=== PATIENT | male | born 1950 | race Caucasian/White ===

== ENCOUNTER 2018-03-14 13:49 | Inpatient (IN) | payer MEDICARE ==
[~2018-03-14] VITALS: Ht 182.9 cm; Wt 56.7 kg
--- NOTE | 2018-03-14 13:52 | NUR ---
PT BIBRA FROM HOME TO ER BED 07 C/O GENRALIZED WEAKNESS, BILAT UPPER AND LOWER EXTREMITY SWELLING. PT DENIES CHEST PAIN. ALSO C/O DIARRHEA. ALL SYMPTOMS STARTED 2 WEEKS AGO. GOWNED AND PLACED ON MONITOR. AWAITING MD ANTONY.
--- NOTE | 2018-03-14 14:38 | NUR ---
DR GUTIERREZ AT BEDSIDE FOR EVAL.
[2018-03-14] MEDS ORDERED: IV NS 0.9% 500 ML BAG IV ONE (15:00)
--- NOTE | 2018-03-14 15:00 | NUR ---
IV LINE STARTED BLOOD DRAWN AND SENT TO LAB.
[2018-03-14 15:16] LABS: BASOPHILS % (AUTO) 0.2 % (0.0-2.0); EOSINOPHILS % (AUTO) 0.1 % (0.0-6.0); HEMATOCRIT 29 % (39-51); LYMPHOCYTES # (AUTO) 0.7 /CMM (0.8-4.8); LYMPHOCYTES % (AUTO) 7.7 % (20.0-44.0); MEAN CORPUSCULAR HEMOGLOBIN 31 PG (26.0-33.0); MEAN CORPUSCULAR HGB CONC 35 g/dl (31.0-36.0); MEAN CORPUSCULAR VOLUME 90 fL (80-96); MONOCYTES # (AUTO) 0.8 /CMM (0.1-1.30); MONOCYTES % (AUTO) 8.7 % (2.0-12.0); NEUTROPHILS # (AUTO) 7.7 /CMM (1.8-8.9); NEUTROPHILS % (AUTO) 83.3 % (43.0-81.0); PLATELET COUNT (AUTO) 639 /CMM (150-450); RDW COEFFICIENT OF VARIATION 14.2 (11.5-15.0); RED BLOOD CELL COUNT(AUTO) 3.22 MIL/uL (4.5-6.0); WHITE BLOOD COUNT (AUTO) 9.2 K/uL (4.3-11.0)
[2018-03-14 15:22] LABS: CALCIUM, SERUM 7.6 mg/dL (8.5-10.1); CARBON DIOXIDE 28 mmol/L (21-32); CHLORIDE 99 mmol/L (98-107); CREATININE 0.5 mg/dL (0.6-1.3); GLUCOSE 116 mg/dL (74-106); INR 1.34 (0.85-1.15); POTASSIUM 3.5 mmol/L (3.5-5.1); SODIUM SERUM 133 mmol/L (136-145); UREA NITROGEN, BLOOD 21 mg/dL (7-18)
[2018-03-14 15:33] LABS: ALANINE AMINOTRANSFERASE 22 U/L (12-78); ALBUMIN 1.5 g/dL (3.4-5.0); ALKALINE PHOSPHATASE 117 U/L (46-116); ASPARTATE AMINOTRANSFERASE 36 U/L (15-37); B-TYPE NATRIURETIC PEPTIDE 299 PG/ML (0-125); BILIRUBIN,DIRECT 0.1 mg/dL (0.0-0.2); BILIRUBIN,TOTAL 0.5 mg/dL (0.2-1.0); TROPONIN I < 0.017 ng/mL (0.00-0.056)
--- NOTE | 2018-03-14 16:09 | NUR ---
CALLED [employer] GREEN HIDE INSPECTOR WAS PAGED.
--- NOTE | 2018-03-14 16:54 | NUR ---
REPORT GIVEN TO ANA PAULA CALZADA. PT AWAITING MD ANTONY.
[2018-03-14] MEDS ORDERED: Z GUARD REMEDY 2 OZ OINT TP PRN (17:00)
[2018-03-14] MEDS ORDERED: MAG HYDROX/AL HYDROX/SIMETH 30 ML UDC PO PRN (17:00)
[2018-03-14] MEDS ORDERED: ZOLPIDEM TARTRATE 5 MG TABLET PO PRN (17:00)
[2018-03-14] MEDS ORDERED: HYDROCODONE/APAP 5/325MG 1 EACH TABLET PO PRN (17:00)
[2018-03-14] MEDS ORDERED: MAGNESIUM HYDROXIDE 30 ML UDC PO PRN (17:00)
[2018-03-14] MEDS ORDERED: ONDANSETRON HCL/PF 4 MG/2 ML VIAL IVP PRN (17:00)
[2018-03-14] MEDS ORDERED: ACETAMINOPHEN 325 MG TABLET PO PRN (17:00)
--- NOTE | 2018-03-14 17:07 | NUR ---
REPORT GIVEN TO CHARO CALZADA. PT AWAITING TRANSFER TO FLOOR.
[2018-03-14] MEDS ORDERED: ENOXAPARIN SODIUM 80 MG/0.8 ML DISP.SYRIN SQ ONE ×2 (17:18→17:30)
[2018-03-14 17:20] VITALS: BP 99/60
--- NOTE | 2018-03-14 17:20 | NUR ---
RN NOTES RECEIVED PT IN ROOM 113-2, TELE STATUS , A/Ox4, ON RA , RESPIRATION EVEN AND UNLABORED, NO SOB NOTED, PT HAS DIARRHEA DUE TO HX OF COLITIS , ON TELE HR IN 70'S SR , NS AT 75CC/HR STATED ON L HAND IV SITE G 18 , SITE CLEAN, DRY AND INTACT, WOUND CONSULT ORDERED , SR UP x3, CALL LIGHT WITHIN EASY REACH, BED LOCKED AND IN LOWEST POSITION , CONTINUE TO MONITOR.
[2018-03-14] MEDS: IV NS 0.9% 1,000 ML IV PRN (17:49)
[2018-03-14] MEDS: METRONIDAZOLE 500MG/ NS 100ML 500 MG in PREMIX 1 EA IV SCH (18:34)
--- NOTE | 2018-03-14 18:56 | NUR ---
RN NOTES PT STABLE , WILL ENDOSE TO STATION BAGGAGE AGENT NURSE FOR CONTINUITY OF CARE .
--- NOTE | 2018-03-14 19:30 | NUR ---
SOFTWARE APPLICATIONS SPECIALIST NOTES, RECEIVED PT IN BED ALERT AND ORIENTED X4, ABLE TO VERBALIZED NEEDS AND CONCERNS, ON RA WITH OPTIMAL SATURATION LEVEL, BREATHING EVEN AND NO BM NOTED AT THIS TIME, ON TELE MONITOR HR IN 70'S SR , IV SITE L HAND G 18, PATENT AND INTACT, NS AT 75CC/HR, DRY AND CLEAN AT THIS TIME AND WELL REPOSITIONED, CALL LIGHT WITHIN EASY REACH, BED LOCKED AND IN LOWEST POSITION , CONTINUE TO MONITOR. TELE
[2018-03-14] MEDS: CIPROFLOXACIN IV RTU 400 MG in PREMIX 1 EA IV SCH (19:48)
[2018-03-14 20:00] VITALS: BP 94/54
[2018-03-14] MEDS: ENOXAPARIN SODIUM 60 MG/0.6 ML DISP.SYRIN SQ SCH (21:29)
[2018-03-15] VITALS (7 sets, daily range): BP systolic 89–104; BP diastolic 52–63
[2018-03-15] MEDS: METRONIDAZOLE 500MG/ NS 100ML 500 MG in PREMIX 1 EA IV SCH ×5 (00:01→23:41)
--- NOTE | 2018-03-15 06:28 | NUR ---
ASSISTANT GUEST SERVICES MANAGER CLOSING NOTES, PATIENT IN BED ALERT AND ORIENTED X4, ABLE TO VERBALIZED NEEDS AND CONCERNS, ON RA WITH OPTIMAL SATURATION LEVEL, BREATHING EVEN AND, NO BM DURING THE NIGHT, ON TELE MONITOR HR IN 70'S SR , IV SITE L HAND G 18, PATENT AND INTACT, 0.9% NS AT 75ML/HR, DRY AND CLEAN AT THIS TIME AND WELL REPOSITIONED, CALL LIGHT WITHIN EASY REACH, BED LOCKED AND IN LOWEST POSITION, NO C/O PAIN OR DISCOMFORT AT THIS TIME, NO SIGNIFICANT CHANGE IN CONDITION DURING THE NIGHT, WILL ENDORSE CONTINUITY OF CARE TO ONCOMING NURSE.
[2018-03-15 06:31] LABS: BASOPHILS % (AUTO) 0.2 % (0.0-2.0); EOSINOPHILS % (AUTO) 0.4 % (0.0-6.0); HEMATOCRIT 27 % (39-51); HEMOGLOBIN 8.8 g/dL (13.5-17.5); LYMPHOCYTES # (AUTO) 0.9 /CMM (0.8-4.8); LYMPHOCYTES % (AUTO) 9.7 % (20.0-44.0); MEAN CORPUSCULAR HEMOGLOBIN 30 PG (26.0-33.0); MEAN CORPUSCULAR HGB CONC 33 g/dl (31.0-36.0); MEAN CORPUSCULAR VOLUME 91 fL (80-96); MONOCYTES # (AUTO) 0.5 /CMM (0.1-1.30); MONOCYTES % (AUTO) 5.7 % (2.0-12.0); NEUTROPHILS # (AUTO) 7.7 /CMM (1.8-8.9); PLATELET COUNT (AUTO) 515 /CMM (150-450); RED BLOOD CELL COUNT(AUTO) 2.96 MIL/uL (4.5-6.0); WHITE BLOOD COUNT (AUTO) 9.2 K/uL (4.3-11.0)
[2018-03-15 06:44] LABS: CREATININE 0.5 mg/dL (0.6-1.3); MAGNESIUM 1.7 mg/dL (1.8-2.4); PHOSPHORUS 2.1 mg/dL (2.5-4.9)
[2018-03-15] MEDS: CIPROFLOXACIN IV RTU 400 MG in PREMIX 1 EA IV SCH ×2 (06:44→18:51)
--- NOTE | 2018-03-15 07:00 | NUR ---
RN NOTES RECEIVED PT ON BED, A/Ox4, ON RA, RESPIRATION EVEN AND UNLABORED, NO SOB NOTED, ON TELE SR HR IN 70'S , NS RUNNING AT 75CC/HR VIA L HAND IV G 18 , SITE CLEAN , DRY AND INTACT, SR UP x3, CALL LIGHT WITHIN EASY REACH , BED LOCKED AND IN LOWEST POSITION ,CONTINUE TO MONITOR .
[2018-03-15] MEDS: ENOXAPARIN SODIUM 60 MG/0.6 ML DISP.SYRIN SQ SCH ×2 (09:00→21:03)
[2018-03-15] MEDS: Magnesium 1GM/D5W 100ML PREMIX 100 ML IV SCH ×3 (09:00→11:26)
[2018-03-15] MEDS ORDERED: POTASSIUM CHLORIDE 20 MEQ TAB.PRT.SR PO ONE (09:00)
[2018-03-15 09:36] LABS: IRON, SERUM 18 ug/dl (50-175); TOTAL IRON BINDING CAPACITY 76 ug/dl (250-450)
[2018-03-15] MEDS ORDERED: Sodium Phosphate 15 MMOL in IV D5W 250 ML IV ONE ×2 (10:30→12:30)
--- NOTE | 2018-03-15 11:54 | NUR ---
WOUND CARE CONSULT: PATIENT SEEN AND SKIN INTEGRITY ASSESSMENT DONE. PLEASE SEE PCS FOR TODAY. TREATMENT RECOMMENDATION DISCUSSED WITH MD AND IN AGREEMENT. PATIENT WITH SURESH OF 14, PRESSURE ULCER PREVENTION MEASURES IN PLACE PER PLAN OF CARE. WILL SEE PRN. Addendum: 03/15/18 at 1157 by RAMON CRAWFORD RN Amended: Links added.
[2018-03-15] MEDS ORDERED: SILVER SULFADIAZINE CREAM 25 GM TUBE TP PRN (12:00)
[2018-03-15] MEDS: IV NS 0.9% 1,000 ML IV PRN (13:02)
--- NOTE | 2018-03-15 15:00 | NUR ---
RN NOTES UNABLE TO OBTAIN SILVADENE FROM PHARMACY . PHARMACY NOTIFEDx2
[2018-03-15] MEDS: PROSOURCE / PROSTAT (PYXIS) 30 ML UDC PO SCH (15:43)
[2018-03-15] MEDS: LACTOBACILLUS RHAMNOSUS GG 1 EACH CAP.SPRINK PO SCH ×2 (16:37→16:59)
[2018-03-15] MEDS: MULTIVITAMINS,THERAGRAN 1 UDTAB TABLET PO SCH ×2 (16:38→17:00)
--- NOTE | 2018-03-15 16:53 | NUR ---
RN NOTES ONE LARGE BLOODY LOOSE STOOL NOTED, DR MORILLO NOTIFIED, NO NEW ORDER RECEIVED, VSS STABLE , CONTINUE TO MONITOR
[2018-03-15] MEDS ORDERED: ACIDOPHILUS/BULGARICUS 1 EACH TAB.CHEW PO SCH (17:00)
[2018-03-15] MEDS: SILVER SULFADIAZINE CREAM 25 GM TUBE TP SCH (17:52)
--- NOTE | 2018-03-15 18:33 | NUR ---
RN NOTES PT STABLE , NS AT 75CC/HR RUNNING VIA R UPPER ARM IV SITE G 22, SR UP x3, CALL LIGHT WITHIN EASY REACH, WILL ENDORSE TO APPLICATIONS CONSULTANT NURSE FOR CONTINUITY OF CARE.
--- NOTE | 2018-03-15 20:03 | NUR ---
Spoke with patient, he is alert and oriented, stated he lives locally alone on the 2nd floor apartment that has no elevator access. He was ambulatory and independent with adl's until a week ago. He complaint of worsening weakness and difficulty ambulating due to swelling to both legs. He fell at home and has skin abrasions .Has limited support system , his nearest relative is cousin Cordell Self of [place] who patient cannot remember the phone contact. Patient stated that he was totally independent a week ago, was driving and does his groceries and errands. He never use DME and no homehealth reported. Discussed dc planning options, offered short term ARU vs SNF but patient refused. Patient prefer to return home, he will need assistance with transportation arrangement to go home. Addendum: 03/15/18 at 2002 by MULU RYAN RN Amended: Links added.
--- NOTE | 2018-03-15 20:11 | NUR ---
RN OPENING NOTES RECEIVED REPORT FROM CATIE CALZADA. PATIENT A/A/O X3, ABLE TO MAKE SOME NEEDS KNOWN & STATE PAIN. BREATHING EVEN & UNLABORED, TOLERATING ROOM AIR. SKIN WARM, DRY & INTACT W/ PULSES PRESENT & BOUNDING. DENIES ANY RESPIRATORY OR CARDIAC DISTRESS. RIGHT UPPER ARM IV #22 INTACT & PATENT W/ DRESSING CDI & IVF NS INFUSING WELL @ 75 ML/HR. DENIES ANY PAIN OR DISCOMFORT @ THIS TIME. SAFETY MEASURES IN PLACE W/ BED ALARM ON & CALL LIGHT WITHIN REACH. INSTRUCTED TO CALL FOR ANY ASSISTANCE. WILL CONTINUE TO MONITOR.
[2018-03-15] MEDS ORDERED: ENSURE ENLIVE 237 ML LIQUID (VANILLA) PO ONE (21:30)
[2018-03-16 02:00] VITALS: BP 96/65
[2018-03-16 04:00] VITALS: BP 96/65
[2018-03-16] MEDS: CIPROFLOXACIN IV RTU 400 MG in PREMIX 1 EA IV SCH ×2 (06:05→17:32)
[2018-03-16] MEDS: METRONIDAZOLE 500MG/ NS 100ML 500 MG in PREMIX 1 EA IV SCH ×3 (06:05→17:32)
[2018-03-16] MEDS: IV NS 0.9% 1,000 ML IV PRN (06:05)
[2018-03-16 06:29] LABS: APPEARANCE,URINE SL CLOUDY (CLEAR); BILIRUBIN,URINE NEGATIVE (NEGATIVE); BLOOD, URINE NEGATIVE Ery/uL (NEGATIVE); COLOR,URINE YELLOW (YELLOW); KETONES,URINE NEGATIVE (NEGATIVE); LEUKOCYTE ESTERASE ,URINE NEGATIVE (NEGATIVE); NITRITE, URINE POSITIVE (NEGATIVE); PROTEIN,URINE TRACE mg/dl (NEGATIVE); UGLUCOSE NEGATIVE (NEGATIVE)
[2018-03-16 06:58] LABS: BASOPHILS % (AUTO) 0.2 % (0.0-2.0); EOSINOPHILS % (AUTO) 0.9 % (0.0-6.0); HEMATOCRIT 26 % (39-51); HEMOGLOBIN 8.6 g/dL (13.5-17.5); LYMPHOCYTES # (AUTO) 0.8 /CMM (0.8-4.8); MEAN CORPUSCULAR HEMOGLOBIN 30 PG (26.0-33.0); MEAN CORPUSCULAR HGB CONC 33 g/dl (31.0-36.0); MEAN CORPUSCULAR VOLUME 92 fL (80-96); MONOCYTES # (AUTO) 0.3 /CMM (0.1-1.30); MONOCYTES % (AUTO) 5.1 % (2.0-12.0); NEUTROPHILS # (AUTO) 4.6 /CMM (1.8-8.9); NEUTROPHILS % (AUTO) 79.8 % (43.0-81.0); PLATELET COUNT (AUTO) 503 /CMM (150-450); RDW COEFFICIENT OF VARIATION 15.3 (11.5-15.0); RED BLOOD CELL COUNT(AUTO) 2.86 MIL/uL (4.5-6.0); WHITE BLOOD COUNT (AUTO) 5.8 K/uL (4.3-11.0)
[2018-03-16 07:09] LABS: BACTERIA,URINE Few /HPF (None Seen); RBC,URINE 0-2 /HPF (0-2); SQUAMOUS EPITHELIAL CELL,UR Few /HPF (None Seen); WBC,URINE NONE SEEN /HPF (0-3)
[2018-03-16 07:10] LABS: MUCUS,URINE Few /LPF (None Seen)
[2018-03-16 07:44] LABS: BILIRUBIN,TOTAL 0.4 mg/dL (0.2-1.0); CALCIUM, SERUM 6.7 mg/dL (8.5-10.1); CREATININE 0.3 mg/dL (0.6-1.3); PHOSPHORUS 1.8 mg/dL (2.5-4.9); POTASSIUM 3.1 mmol/L (3.5-5.1); TOTAL PROTEIN, SERUM 4.2 g/dL (6.4-8.2)
--- NOTE | 2018-03-16 07:45 | NUR ---
MS RN NOTES: RECEIVED PT ON BED ASLEEP, BUT EASILY AROUSABLE. NO ACUTE DISTRESS NOTED. DENIES PAIN AT THIS TIME. BREATHING EVEN AND UNLABORED WITH NORMAL RESPIRATIONS. IV ON RIGHT UPPER ARM G22 INTACT AND PATENT, WITH IVF NS RUNNING AT 75ML/HR, INFUSING WELL. CALL LIGHT PLACED WITHIN REACH. KEPT CLEAN, DRY AND COMFORTABLE. SIDE RAILS UP X2. BED ALARM ON. BED LOCKED AND IN LOWEST POSITION. WILL CONTINUE TO MONITOR.
--- NOTE | 2018-03-16 07:47 | NUR ---
MS RN NOTES: RECEIVED A CALL FROM LAB REGARDING PATIENT'S CRITICAL LOW ALBUMIN LEVEL 1.3.
[2018-03-16 07:53] LABS: ALBUMIN 1.3 g/dL (3.4-5.0)
[2018-03-16 08:00] VITALS: BP 100/63
[2018-03-16] MEDS: ENSURE ENLIVE 237 ML LIQUID (VANILLA) PO SCH ×2 (08:33→17:08)
[2018-03-16] MEDS: PROSOURCE / PROSTAT (PYXIS) 30 ML UDC PO SCH (08:34)
[2018-03-16] MEDS: SILVER SULFADIAZINE CREAM 25 GM TUBE TP SCH (08:36)
[2018-03-16] MEDS: LACTOBACILLUS RHAMNOSUS GG 1 EACH CAP.SPRINK PO SCH ×2 (08:40→16:29)
[2018-03-16] MEDS: ENOXAPARIN SODIUM 60 MG/0.6 ML DISP.SYRIN SQ SCH ×2 (08:40→21:00)
[2018-03-16] MEDS: MULTIVITAMINS,THERAGRAN 1 UDTAB TABLET PO SCH (08:41)
[2018-03-16] MEDS ORDERED: POTASSIUM PHOSPHATE MM 15 MMOL in IV D5W 250 ML IV SCH (09:00)
--- NOTE | 2018-03-16 09:00 | NUR ---
MS RN NOTES: DR. MORILLO AWARE REGARDING PATIENT'S ALBUMIN LEVEL.
[2018-03-16] MEDS: POTASSIUM CHLORIDE 20 MEQ TAB.PRT.SR PO SCH ×2 (09:29→10:12)
[2018-03-16] MEDS ORDERED: Potassium Phosphate meq 11 MEQ in IV NS 0.9% 100 ML IV SCH (10:00)
[2018-03-16] MEDS: POTASSIUM PHOSPHATE MM 7.5 MMOL in IV D5W 100 ML IV SCH ×2 (10:30→13:27)
[2018-03-16] MEDS: SOD FERRIC GLUC 125 MG in IV NS 0.9% 100 ML IV SCH (14:28)
[2018-03-16 16:00] VITALS: BP 97/59
--- NOTE | 2018-03-16 17:36 | NUR ---
MS RN NOTES: PATIENT PULLED OUT HIS IV AND REFUSED ALL HIS IV MEDS AND IV FLUIDS. EXPLAINED RISKS AND BENEFITS BUT STILL PT REFUSED. PT STATED THAT HE DOESN'T NEED IT NOW AND IT'S NOT HELPING HIM. DR. MORILLO MADE AWARE.
--- NOTE | 2018-03-16 18:21 | NUR ---
MS RN NOTES: PATIENT IN BED, AWAKE, ALERT AND ORIENTED X3. ABLE TO MAKE NEEDS KNOWN. NO ACUTE DISTRESS NOTED. DENIES PAIN AND DISCOMFORT AT THIS TIME. ON ROOM AIR, SATURATING WELL. NO SOB NOTED. KEPT CLEAN, DRY AND COMFORTABLE. ENCOURAGED BED MOBILITY. SAFETY AND FALL PRECAUTIONS OBSERVED AND MAINTAINED. CALL LIGHT PLACED WITHIN REACH. WILL ENDORSE TO SURVEY CHIEF FOR CONTINUITY OF CARE.
--- NOTE | 2018-03-16 19:52 | NUR ---
RN OPENING NOTES RECEIVED REPORT FROM OKSANA CALZADA. PATIENT A/A/O X3, ABLE TO MAKE SOME NEEDS KNOWN & STATE PAIN. BREATHING EVEN & UNLABORED, TOLERATING ROOM AIR. SKIN WARM, DRY & INTACT W/ PULSES PRESENT & BOUNDING. DENIES ANY RESPIRATORY OR CARDIAC DISTRESS. DENIES ANY PAIN OR DISCOMFORT @ THIS TIME. SAFETY MEASURES IN PLACE W/ BED ALARM ON & CALL LIGHT WITHIN REACH. INSTRUCTED TO CALL FOR ANY ASSISTANCE. WILL CONTINUE TO MONITOR. ALSO ADVISED THAT PT WILL NEED TO HAVE IV REINSERTED FOR ORDERED IV ABX BUT PT STILL REFUSED.
[2018-03-16 20:00] VITALS: BP 107/64
[2018-03-16] MEDS ORDERED: PEG 3350/NA SULF,BICARB,CL/KCL 4,000 ML BOTTLE PO ONE (22:00)
[2018-03-16] MEDS ORDERED: PEG 3350/NA SULF,BICARB,CL/KCL 4,000 ML BOTTLE ONE (23:10)
[2018-03-17 04:00] VITALS: BP 107/70
[2018-03-17] MEDS: METRONIDAZOLE 500MG/ NS 100ML 500 MG in PREMIX 1 EA IV SCH ×6 (06:00→23:01)
[2018-03-17] MEDS: CIPROFLOXACIN IV RTU 400 MG in PREMIX 1 EA IV SCH ×2 (06:00→17:57)
[2018-03-17 06:55] VITALS: BP 107/70
[2018-03-17 07:11] LABS: BASOPHILS % (AUTO) 0.2 % (0.0-2.0); EOSINOPHILS % (AUTO) 0.7 % (0.0-6.0); HEMATOCRIT 29 % (39-51); HEMOGLOBIN 9.4 g/dL (13.5-17.5); LYMPHOCYTES # (AUTO) 0.7 /CMM (0.8-4.8); LYMPHOCYTES % (AUTO) 11.2 % (20.0-44.0); MEAN CORPUSCULAR HEMOGLOBIN 30 PG (26.0-33.0); MEAN CORPUSCULAR HGB CONC 32 g/dl (31.0-36.0); MEAN CORPUSCULAR VOLUME 93 fL (80-96); MONOCYTES # (AUTO) 0.4 /CMM (0.1-1.30); MONOCYTES % (AUTO) 6.4 % (2.0-12.0); NEUTROPHILS # (AUTO) 5.4 /CMM (1.8-8.9); NEUTROPHILS % (AUTO) 81.5 % (43.0-81.0); PLATELET COUNT (AUTO) 548 /CMM (150-450); RDW COEFFICIENT OF VARIATION 15.4 (11.5-15.0); RED BLOOD CELL COUNT(AUTO) 3.14 MIL/uL (4.5-6.0); WHITE BLOOD COUNT (AUTO) 6.6 K/uL (4.3-11.0)
[2018-03-17 07:28] LABS: BILIRUBIN,TOTAL 0.4 mg/dL (0.2-1.0); CREATININE 0.4 mg/dL (0.6-1.3); PHOSPHORUS 1.9 mg/dL (2.5-4.9); POTASSIUM 3.7 mmol/L (3.5-5.1); TOTAL PROTEIN, SERUM 4.7 g/dL (6.4-8.2)
[2018-03-17 07:34] LABS: ALBUMIN 1.4 g/dL (3.4-5.0)
--- NOTE | 2018-03-17 07:35 | NUR ---
MS RN NOTES: RECEIVED PT ON BED ALERT AND AWAKE. ABLE TO MAKE NEEDS KNOWN. NO ACUTE DISTRESS NOTED. DENIES PAIN AT THIS TIME. NO SOB NOTED. RECEIVED A CALL FROM LAB REGARDING PATIENT'S ALBUMIN 1.4. IV INSERTED ON RIGHT AC #20, INTACT AND PATENT, FLUSHING WELL. KEPT CLEAN, DRY AND COMFORTABLE. SAFETY AND FALL PRECAUTIONS OBSERVED AND MAINTAINED. CALL LIGHT WITHIN REACH. WILL CONTINUE TO MONITOR.
[2018-03-17 08:00] VITALS: BP 111/72
[2018-03-17] MEDS ORDERED: POTASSIUM PHOSPHATE MM 15 MMOL in IV D5W 250 ML IV SCH (08:00)
[2018-03-17] MEDS: ENSURE ENLIVE 237 ML LIQUID (VANILLA) PO SCH ×2 (08:06→17:11)
[2018-03-17] MEDS: PROSOURCE / PROSTAT (PYXIS) 30 ML UDC PO SCH (08:06)
[2018-03-17] MEDS: LACTOBACILLUS RHAMNOSUS GG 1 EACH CAP.SPRINK PO SCH ×2 (08:06→17:00)
[2018-03-17] MEDS: MULTIVITAMINS,THERAGRAN 1 UDTAB TABLET PO SCH (08:06)
[2018-03-17] MEDS: ENOXAPARIN SODIUM 60 MG/0.6 ML DISP.SYRIN SQ SCH ×3 (08:06→20:49)
[2018-03-17] MEDS ORDERED: POTASSIUM PHOSPHATE MM 7.5 MMOL in IV NS 0.9% 100 ML IV SCH (08:30)
--- NOTE | 2018-03-17 08:30 | NUR ---
MS RN NOTES: CALLED PHARMACY REGARDING PATIENT'S POTASSIUM PHOSPHATE IV MEDICATION DUE AT 0830, PHARMACY STATED THAT THEY WILL RESCHEDULE THE MEDICATION BECAUSE PT IS GOING TO SURGERY. SPOKE TO NANCY (BACK ROLLER) AND INFORMED HER ABOUT PATIENT'S PHOSPHORUS LEVEL AND AGREED TO GIVE THE MEDICATION AFTER THE PROCEDURE.
[2018-03-17] MEDS: SILVER SULFADIAZINE CREAM 25 GM TUBE TP SCH (09:00)
[2018-03-17] MEDS ORDERED: MORPHINE SULFATE INJ 4 MG/ML DISP.SYRIN ONE (09:24)
--- NOTE | 2018-03-17 10:20 | NUR ---
MS RN NOTES: PATIENT CAME BACK FROM OR. NO APPARENT DISTRESS NOTED. DENIES PAIN AT THIS TIME. VITAL SIGNS WNL, BP 104/63, HR 75, RR 18, TEMP 97.7, O2 SAT 97%. NO SOB NOTED. CALL LIGHT PLACED WITHIN REACH. KEPT CLEAN, DRY AND COMFORTABLE. WILL CONTINUE TO MONITOR PT.
--- NOTE | 2018-03-17 11:34 | NUR ---
MS RN NOTES: PER SANJANA LOVE TO GIVE LOVENOX.
[2018-03-17] MEDS: POTASSIUM PHOSPHATE MM 7.5 MMOL in IV NS 0.9% 100 ML IV SCH ×2 (13:28→18:31)
--- NOTE | 2018-03-17 14:17 | NUR ---
MS RN NOTES: PER PHARMACY DO NOT GIVE FERRLECIT AND POTASSIUM PHOSPHATE AT THE SAME TIME. FERRLECIT WILL BE GIVEN AFTER POTASSIUM PHOSPHATE DOSE.
[2018-03-17 16:00] VITALS: BP 94/62
[2018-03-17] MEDS: SOD FERRIC GLUC 125 MG in IV NS 0.9% 100 ML IV SCH (17:03)
--- NOTE | 2018-03-17 17:18 | NUR ---
MS RN NOTES: IV LINE INFILTRATED, REINSERTED ON LFA #22. PHARMACY AWARE REGARDING 2ND BAG OF POTASSIUM PHOSPHATE NOT GIVEN ON TIME DUE TO LATE ADMINISTRATION OF FERLLECIT.
--- NOTE | 2018-03-17 19:24 | NUR ---
MS RN NOTES: NO CHANGES THROUGHOUT THE SHIFT. NO COMPLAINTS OF PAIN OR DISCOMFORT. NO SOB. IV ON LFA #22 INTACT AND PATENT, INFUSING WELL. KEPT CLEAN, DRY AND COMFORTABLE. ENCOURAGED BED MOBILITY. CALL LIGHT PLACED WITHIN REACH. WILL ENDORSE TO BLACKJACK SUPERVISOR FOR CONTINUITY OF CARE
--- NOTE | 2018-03-17 19:30 | NUR ---
MS RN NOTES RECEIVED PT ON BED. A/OX3 . ON CUCA, AIR SATURATING WELL. NO RESPIRATORY DISTRESS NOTED. IV ACCESS ON LFA #22, NS RUNNING @ 75CC/HR. NO SIGN OF INFILTRATION OR ANY REDNESS. HEAD OF BED ELEVATED. BED ALARM ON. SIDE RAILS UP. CALL LIGHT WITHIN REACH. WILL CONTINUE TO MONITOR PT CLOSELY.
--- NOTE | 2018-03-17 19:45 | NUR ---
MS CALZADA NOTES RECEIVED PT ON BED. A/OX3 . ON CUCA, AIR SATURATING WELL. NO RESPIRATORY DISTRESS NOTED. IV ACCESS ON LFA #22, NS RUNNING @ 75CC/HR. NO SIGN OF INFILTRATION OR ANY REDNESS. HEAD OF BED ELEVATED. BED ALARM ON. SIDE RAILS UP. CALL LIGHT WITHIN REACH. WILL CONTINUE TO MONITOR PT CLOSELY. Addendum: 03/17/18 at 2014 by ABIGAIL ROMAN RN WRONG USER
[2018-03-17 20:00] VITALS: BP 107/59
[2018-03-18] VITALS: BP 110/60
[2018-03-18 04:00] VITALS: BP 104/61
[2018-03-18] MEDS: METRONIDAZOLE 500MG/ NS 100ML 500 MG in PREMIX 1 EA IV SCH (05:43)
[2018-03-18] MEDS: CIPROFLOXACIN IV RTU 400 MG in PREMIX 1 EA IV SCH (05:43)
--- NOTE | 2018-03-18 05:45 | NUR ---
MS RN NOTES PT REFUSED 6AM MEDICATIONS. EXPLAINED RISK AND BENEFITS, PT STILL REFUSED. CHARGE NURSE INFORMED.
[2018-03-18] MEDS: IV NS 0.9% 1,000 ML IV PRN (05:54)
[2018-03-18 06:53] LABS: BASOPHILS % (AUTO) 0.2 % (0.0-2.0); HEMATOCRIT 28 % (39-51); LYMPHOCYTES # (AUTO) 0.8 /CMM (0.8-4.8); LYMPHOCYTES % (AUTO) 10.6 % (20.0-44.0); MEAN CORPUSCULAR HEMOGLOBIN 30 PG (26.0-33.0); MEAN CORPUSCULAR HGB CONC 32 g/dl (31.0-36.0); MEAN CORPUSCULAR VOLUME 93 fL (80-96); MONOCYTES # (AUTO) 0.4 /CMM (0.1-1.30); MONOCYTES % (AUTO) 5.5 % (2.0-12.0); NEUTROPHILS # (AUTO) 5.9 /CMM (1.8-8.9); NEUTROPHILS % (AUTO) 82.7 % (43.0-81.0); PLATELET COUNT (AUTO) 550 /CMM (150-450); RDW COEFFICIENT OF VARIATION 15.3 (11.5-15.0); RED BLOOD CELL COUNT(AUTO) 3.01 MIL/uL (4.5-6.0); WHITE BLOOD COUNT (AUTO) 7.2 K/uL (4.3-11.0)
[2018-03-18 07:09] LABS: CALCIUM, SERUM 7.2 mg/dL (8.5-10.1); CREATININE 0.4 mg/dL (0.6-1.3); MAGNESIUM 1.9 mg/dL (1.8-2.4); PHOSPHORUS 1.9 mg/dL (2.5-4.9); POTASSIUM 3.5 mmol/L (3.5-5.1)
--- NOTE | 2018-03-18 07:15 | NUR ---
MS RN NOTES NO ACUTE CHANGES NOTED DURING THE SHIFT. PROVIDED COMFORT AND SAFETY. BED ALARM ON. SIDE RAILS UP. CALL LIGHT WITHIN REACH. ENDORSED TO THE AM NURSE FOR CONTINUITY OF CARE.
[2018-03-18 08:00] VITALS: BP 98/61
--- NOTE | 2018-03-18 08:21 | NUR ---
RECEIVED PT IN BED AWAKE, ALERT, ORIENTED X2-3 VERBALLY RESPONSIVE, DENIES ANY PAIN, NO DISTRESS AT THIS TIME.
[2018-03-18] MEDS: METRONIDAZOLE 500 MG TABLET PO SCH ×3 (08:30→21:00)
[2018-03-18] MEDS: PROSOURCE / PROSTAT (PYXIS) 30 ML UDC PO SCH ×2 (09:00→09:40)
[2018-03-18] MEDS: LACTOBACILLUS RHAMNOSUS GG 1 EACH CAP.SPRINK PO SCH ×3 (09:00→16:14)
[2018-03-18] MEDS ORDERED: MULTIVITAMINS,THERAGRAN 1 UDTAB TABLET PO SCH (09:00)
[2018-03-18] MEDS: ENSURE ENLIVE 237 ML LIQUID (VANILLA) PO SCH ×2 (09:00→16:14)
[2018-03-18] MEDS: LEVOFLOXACIN (500MG) 500 MG TABLET PO SCH ×2 (09:00→09:37)
[2018-03-18] MEDS: K PHOS NEUTRAL 250 MG TABLET PO SCH ×5 (09:00→21:00)
[2018-03-18] MEDS ORDERED: APIXABAN 5 MG TABLET PO SCH (09:00)
[2018-03-18] MEDS ORDERED: predniSONE 20 MG TABLET PO SCH (09:00)
[2018-03-18] MEDS: MULTIVITAMINS,THERAGRAN 1 UDTAB TABLET PO SCH (09:36)
[2018-03-18] MEDS: ENOXAPARIN SODIUM 60 MG/0.6 ML DISP.SYRIN SQ SCH ×2 (09:39→21:00)
[2018-03-18] MEDS: SILVER SULFADIAZINE CREAM 25 GM TUBE TP SCH (09:40)
--- NOTE | 2018-03-18 10:56 | NUR ---
pT IN BED REFUSED MOSTLY ALL MEDICATION TOOK ONLY PREDNISONE, AND LEVONOX, REST OF MEDS HE STATED " i DO NOT NEED THEM"
--- NOTE | 2018-03-18 12:10 | NUR ---
Received bedside sbar report on the patient for SHAUN. Patient is asleep, easily awaken in bed. bed is locked in lowest position, side rails upx3, bed alarm is on. Call light within reach. Educated the patient to call for assistance using the call light and patient verbalized understanding. denies pain/discomfort at this time. Will continue to assess/monitor throughout the shift.
[2018-03-18] MEDS ORDERED: methylPREDNISolone SOD SUCC 40 MG/ML VIAL IV SCH ×2 (13:00→17:00)
[2018-03-18] MEDS: SOD FERRIC GLUC 125 MG in IV NS 0.9% 100 ML IV SCH (13:54)
--- NOTE | 2018-03-18 13:55 | NUR ---
Patient refused medications. Risks and benefits discussed. Patient refused medications.
--- NOTE | 2018-03-18 15:17 | NUR ---
DR REEYS AT THE BEDSIDE. PER DR REYES DISCONTINUE SOLU-MEDROL. ORDER READ BACK AND VERIFIED. WILL FOLLOW ORDER RECEIVED.
[2018-03-18 16:00] VITALS: BP 98/61
[2018-03-18] MEDS: BUDESONIDE 3 MG CAP.SR.24H PO SCH (16:22)
--- NOTE | 2018-03-18 16:24 | NUR ---
Patient refused medications except for Budesonide.
--- NOTE | 2018-03-18 19:07 | NUR ---
Patient is A/O x2, confused at times, forgetful of specific dates. Patient is awake and responsive in bed. Bed is locked in lowest position, side rails up x3, bed alarm is on. Jayy light within reach. All needs are met. No significant change in condition noted. Will endorse to the overnight cashier nurse for SHAUN.
[2018-03-18 20:00] VITALS: BP 111/69
--- NOTE | 2018-03-18 20:00 | NUR ---
RN INITIAL NOTES RECEIVED PT IN BED AWAKE, ALERT, ORIENTED X2-3. DENIES ANY PAIN, NO DISTRESS AT THIS TIME.BED LOCKED IN LOWEST POSITION. CALL LIGHT WITH IN REACH. WILL CONT TO MONITOR.
--- NOTE | 2018-03-18 21:38 | NUR ---
RN NOTES Patient refused all medications, he also removed his IV. JEANETTE An notified.
[2018-03-19] VITALS: BP 111/69
[2018-03-19 04:00] VITALS: BP 101/61
[2018-03-19] MEDS: METRONIDAZOLE 500 MG TABLET PO SCH ×4 (04:56→21:00)
[2018-03-19 06:13] LABS: CALCIUM, SERUM 7.1 mg/dL (8.5-10.1); CREATININE 0.3 mg/dL (0.6-1.3); MAGNESIUM 1.9 mg/dL (1.8-2.4); PHOSPHORUS 1.5 mg/dL (2.5-4.9); POTASSIUM 3.8 mmol/L (3.5-5.1)
--- NOTE | 2018-03-19 06:40 | NUR ---
RN CLOSING NOTES PT IN STABLE CONDITION, NO ACUTE DISTRESS NOTED THROUGHOUT SHIFT. SAFETY MEASURES OBSERVED AT ALL TIMES. PT REFUSED ALL MEDICATION OVER NIGHT. ENDORSED TO AM SHIFT NURSE FOR SHAUN
[2018-03-19 08:00] VITALS: BP 107/63
--- NOTE | 2018-03-19 08:00 | NUR ---
SHA RN INITIAL NOTES RECEIVED PT IN BED AWAKE, ALERT, ORIENTED X3. DENIES ANY PAIN, NO SOB, NO DISTRESS NOTED AT THIS TIME.BED LOCKED IN LOWEST POSITION. CALL LIGHT WITH IN REACH. WILL CONT TO MONITOR.
[2018-03-19 08:10] LABS: AFP, TUMOR MARKER 4.5 ng/mL (0.0-8.3)
[2018-03-19] MEDS: MULTIVITAMINS,THERAGRAN 1 UDTAB TABLET PO SCH (09:00)
[2018-03-19] MEDS: LEVOFLOXACIN (500MG) 500 MG TABLET PO SCH (09:00)
[2018-03-19] MEDS: PROSOURCE / PROSTAT (PYXIS) 30 ML UDC PO SCH (09:00)
[2018-03-19] MEDS: K PHOS NEUTRAL 250 MG TABLET PO SCH ×4 (09:00→21:00)
[2018-03-19] MEDS: LACTOBACILLUS RHAMNOSUS GG 1 EACH CAP.SPRINK PO SCH ×2 (09:00→17:00)
[2018-03-19] MEDS: BUDESONIDE 3 MG CAP.SR.24H PO SCH (09:00)
--- NOTE | 2018-03-19 09:00 | NUR ---
RN NOTES PATIENT IS REFUSING MOST OF HIS MEDICATIONS AND NEW IV START. IV LINE WAS REMOVED BY PATIENT DURING PM SHIFT. DR Arnaud MORILLO IS NOTIFIED, NO NEW ORDERS FOR NOW.
[2018-03-19] MEDS: ENOXAPARIN SODIUM 60 MG/0.6 ML DISP.SYRIN SQ SCH ×2 (09:11→21:52)
[2018-03-19] MEDS: predniSONE 20 MG TABLET PO SCH (09:12)
[2018-03-19] MEDS: SILVER SULFADIAZINE CREAM 25 GM TUBE TP SCH (09:16)
[2018-03-19] MEDS: ENSURE ENLIVE 237 ML LIQUID (VANILLA) PO SCH ×2 (10:26→17:00)
--- NOTE | 2018-03-19 13:09 | NUR ---
SHA RN NOTES PATIENT REFUSED HIS 1300 MEDICATIONS.
[2018-03-19] MEDS ORDERED: MESALAMINE 400 MG CAP PO SCH (14:00)
[2018-03-19] MEDS ORDERED: MESALAMINE 250 MG CAPSULE.SA PO SCH (14:00)
[2018-03-19] MEDS: SOD FERRIC GLUC 125 MG in IV NS 0.9% 100 ML IV SCH (14:00)
--- NOTE | 2018-03-19 14:00 | NUR ---
RN NOTES PATIENT REFUSER HIS IV MEDICATION FERRLECIT. PATIENT WAS ASKED AGAIN FOR NEW IV LINE START WHICH WAS REFUSED BY PATIENT. Addendum: 03/19/18 at 1415 by TYREE DAMON RN PATIENT REFUSED 1400 BLOOD DRAW FOR LAB WORK.
[2018-03-19 16:00] VITALS: BP 102/65
[2018-03-19] MEDS: MESALAMINE 400 MG CAP PO SCH (17:00)
--- NOTE | 2018-03-19 17:31 | NUR ---
SHA RN NOTES PATIENT REFUSED HIS 1700 MEDICATIONS EVEN THOUGH ALL RISKS AND BENEFITS ARE EXPLAINED. PATIENT IS STILL REFUSING NEW IV LINE STARTING.
[2018-03-19 20:00] VITALS: BP 106/70
--- NOTE | 2018-03-19 20:00 | NUR ---
RN INITIAL NOTES RECEIVED PT IN BED AWAKE, ALERT, ORIENTED X2-3. DENIES ANY PAIN, NO DISTRESS AT THIS TIME. BED LOCKED IN LOWEST POSITION. CALL LIGHT WITH IN REACH. WILL CONT TO MONITOR.
--- NOTE | 2018-03-19 21:00 | NUR ---
RN NOTES Patient refused all PO medications, He only took Lovanox.
[2018-03-20] VITALS (7 sets, daily range): BP systolic 101–108; BP diastolic 59–70
[2018-03-20] MEDS: METRONIDAZOLE 500 MG TABLET PO SCH ×2 (05:00→13:00)
--- NOTE | 2018-03-20 06:00 | NUR ---
RN NOTES Patient refused to have his AM labs done.
[2018-03-20 07:54] LABS: BASOPHILS % (AUTO) 0.2 % (0.0-2.0); EOSINOPHILS % (AUTO) 0.2 % (0.0-6.0); HEMATOCRIT 27 % (39-51); HEMOGLOBIN 8.6 g/dL (13.5-17.5); LYMPHOCYTES # (AUTO) 1.1 /CMM (0.8-4.8); LYMPHOCYTES % (AUTO) 10.2 % (20.0-44.0); MEAN CORPUSCULAR HEMOGLOBIN 30 PG (26.0-33.0); MEAN CORPUSCULAR HGB CONC 32 g/dl (31.0-36.0); MEAN CORPUSCULAR VOLUME 92 fL (80-96); MONOCYTES # (AUTO) 0.6 /CMM (0.1-1.30); MONOCYTES % (AUTO) 5.6 % (2.0-12.0); NEUTROPHILS # (AUTO) 8.7 /CMM (1.8-8.9); NEUTROPHILS % (AUTO) 83.8 % (43.0-81.0); PLATELET COUNT (AUTO) 544 /CMM (150-450); RDW COEFFICIENT OF VARIATION 16.1 (11.5-15.0); WHITE BLOOD COUNT (AUTO) 10.4 K/uL (4.3-11.0)
[2018-03-20 08:09] LABS: BILIRUBIN,TOTAL 0.3 mg/dL (0.2-1.0); CALCIUM, SERUM 7.1 mg/dL (8.5-10.1); CREATININE 0.4 mg/dL (0.6-1.3); POTASSIUM 3.7 mmol/L (3.5-5.1); TOTAL PROTEIN, SERUM 4.5 g/dL (6.4-8.2)
[2018-03-20 08:12] LABS: ALBUMIN 1.4 g/dL (3.4-5.0)
[2018-03-20] MEDS: ENSURE ENLIVE 237 ML LIQUID (VANILLA) PO SCH ×2 (08:49→16:53)
[2018-03-20] MEDS: predniSONE 20 MG TABLET PO SCH (08:49)
[2018-03-20] MEDS: ENOXAPARIN SODIUM 60 MG/0.6 ML DISP.SYRIN SQ SCH ×2 (08:50→21:49)
[2018-03-20] MEDS: LACTOBACILLUS RHAMNOSUS GG 1 EACH CAP.SPRINK PO SCH ×2 (08:55→16:53)
[2018-03-20] MEDS: MESALAMINE 400 MG CAP PO SCH ×3 (08:57→16:53)
[2018-03-20] MEDS: K PHOS NEUTRAL 250 MG TABLET PO SCH ×4 (08:58→21:00)
[2018-03-20] MEDS: MULTIVITAMINS,THERAGRAN 1 UDTAB TABLET PO SCH (08:58)
[2018-03-20] MEDS: BUDESONIDE 3 MG CAP.SR.24H PO SCH (08:58)
[2018-03-20] MEDS: LEVOFLOXACIN (500MG) 500 MG TABLET PO SCH (08:58)
[2018-03-20] MEDS: PROSOURCE / PROSTAT (PYXIS) 30 ML UDC PO SCH (08:58)
[2018-03-20] MEDS: SILVER SULFADIAZINE CREAM 25 GM TUBE TP SCH (08:59)
--- NOTE | 2018-03-20 09:30 | NUR ---
RN NOTES: OFFERED DAILY AM MEDICATIONS BUT REFUSED. EDUCATED PT REGARDING MEDICATIONS AND IMPORTANCE - PT STATED THAT THERE IS NO NEED TO TAKE COLITIS MEDICATIONS BECAUSE HE CAME HERE TO THE HOSPITAL BECAUSE OF LEG PAINS AND SWELLING. PT HAVING WATERY STOOLS AND WEARS DIAPERS STATED HE CANNOT WALK BECAUSE OF ITS SWOLLEN LEGS. BED LOW AND LOCKED. CALL LIGHT WITHIN REACHED. WILL CONT TO MONITOR.
[2018-03-20] MEDS: SOD FERRIC GLUC 125 MG in IV NS 0.9% 100 ML IV SCH (14:00)
--- NOTE | 2018-03-20 18:39 | NUR ---
SPOKE WITH PT REGARDING MEDICATION IMPORTANCE AND STILL REFUSED STATED HE CANNOT AFFORD THESE MEDICATIONS THAT ARE BEING OFFERED. SPOKE WITH CHARGE NURSE FOR POSSIBLY COBOL DEVELOPER CONSULT REGARDING PT'S CONCERN OF CO PAYMENTS. ACTIVE DIARRHEA SECONDARY TO COLITIS. SWOLLEN LOWER EXTREMITIES, LOVENOX ORDERED AND PT AGREES. EATING WELL. NO C/O PAIN. BED LOW AND LOCKED. CALL LIGHT WITHIN REACHED. WILL CONT TO MONITOR.
[2018-03-21 04:00] VITALS: BP 115/65
[2018-03-21 05:00] VITALS: BP 115/65
[2018-03-21 07:52] LABS: EOSINOPHILS % (AUTO) 0.1 % (0.0-6.0); HEMATOCRIT 27 % (39-51); HEMOGLOBIN 8.6 g/dL (13.5-17.5); LYMPHOCYTES # (AUTO) 1.2 /CMM (0.8-4.8); LYMPHOCYTES % (AUTO) 11.7 % (20.0-44.0); MEAN CORPUSCULAR HEMOGLOBIN 30 PG (26.0-33.0); MEAN CORPUSCULAR HGB CONC 32 g/dl (31.0-36.0); MEAN CORPUSCULAR VOLUME 94 fL (80-96); MONOCYTES # (AUTO) 0.6 /CMM (0.1-1.30); MONOCYTES % (AUTO) 5.5 % (2.0-12.0); NEUTROPHILS # (AUTO) 8.4 /CMM (1.8-8.9); NEUTROPHILS % (AUTO) 82.7 % (43.0-81.0); PLATELET COUNT (AUTO) 616 /CMM (150-450); RED BLOOD CELL COUNT(AUTO) 2.88 MIL/uL (4.5-6.0); WHITE BLOOD COUNT (AUTO) 10.1 K/uL (4.3-11.0)
[2018-03-21 08:00] VITALS: BP 105/59
[2018-03-21 08:04] LABS: CALCIUM, SERUM 7.2 mg/dL (8.5-10.1); CREATININE 0.3 mg/dL (0.6-1.3); MAGNESIUM 1.8 mg/dL (1.8-2.4); PHOSPHORUS 1.8 mg/dL (2.5-4.9); POTASSIUM 3.8 mmol/L (3.5-5.1)
[2018-03-21] MEDS: MULTIVITAMINS,THERAGRAN 1 UDTAB TABLET PO SCH (09:00)
[2018-03-21] MEDS: SILVER SULFADIAZINE CREAM 25 GM TUBE TP SCH (09:00)
[2018-03-21] MEDS: predniSONE 20 MG TABLET PO SCH (09:00)
[2018-03-21] MEDS: ENSURE ENLIVE 237 ML LIQUID (VANILLA) PO SCH (09:00)
[2018-03-21] MEDS: ENOXAPARIN SODIUM 60 MG/0.6 ML DISP.SYRIN SQ SCH (09:00)
[2018-03-21] MEDS: LACTOBACILLUS RHAMNOSUS GG 1 EACH CAP.SPRINK PO SCH (09:00)
[2018-03-21] MEDS: PROSOURCE / PROSTAT (PYXIS) 30 ML UDC PO SCH (09:00)
[2018-03-21] MEDS: BUDESONIDE 3 MG CAP.SR.24H PO SCH (09:00)
[2018-03-21] MEDS: K PHOS NEUTRAL 250 MG TABLET PO SCH ×2 (09:00→13:00)
[2018-03-21] MEDS: MESALAMINE 400 MG CAP PO SCH ×2 (09:00→13:00)
[2018-03-21] MEDS ORDERED: Silver Sulfadiazine Cream TP (10:10)
[2018-03-21] MEDS ORDERED: LACT1CAP72 PO (10:10)
[2018-03-21] MEDS ORDERED: PHOS250T2 PO (10:10)
[2018-03-21] MEDS ORDERED: MULT-24 PO (10:10)
[2018-03-21] MEDS ORDERED: PRED20TA PO (10:10)
[2018-03-21] MEDS ORDERED: ENOX60DI SQ (10:10)
[2018-03-21] MEDS ORDERED: Mesalamine PO (10:10)
[2018-03-21] MEDS ORDERED: BUDE3CAP15 PO (10:10)
--- NOTE | 2018-03-21 11:45 | NUR ---
PT STILL REFUSED ALL MEDICATIONS INCLUDING LOVENOX AND NEUTRA PHOS. EXPLAINED TO PT IMPORTANCE OF MEDICATIONS. PT'S MAIN CONCERN IS ABOUT BILLING - NOTIFIED LOADING UNIT OPERATOR SEATING TJ AND STATED TO CALL BUSINESS OFFICE. SPOKE WITH BUSINESS OFFICE PERSONNEL AND STATED WILL SPEAK WITH PT. PT IS BEING DISCHARGE TODAY TO [facility], AMBULANCE HOMOGENIZER OPERATOR TIME AT 1400. REPORT GIVEN TO ELSI TIMMONS. NOTIFIED PT ABOUT DISCHARGE ORDER. WILL CONTINUE TO MONITOR.
--- NOTE | 2018-03-21 13:39 | NUR ---
DISCHARGE INSTRUCTIONS GIVEN REGARDING MEDICATIONS, ACTIVITIES, DIET AND FOLLOW UP APPOINTMENTS. PT HAVING LOOSE BM, BROWN. SKIN ON SACRUM INTACT. AMBULANCE TO [facility] PT AT 1400 FOR DISCHARGE TO [facility].
== END 2018-03-21 14:20 | DRG 385 ==
LOC: ER 13:52 → TELE1 16:29 → MEDSG1 03-15 12:48 → MED 03-17 22:02 → MEDSG1 03-17 22:18
PROVIDERS: ADMIT Internal Medicine; ATTEND Internal Medicine
PROC: 0DBP8ZX Excision of Rectum, Via Natural or Artificial Opening Endoscopic, Diagnostic (ICD-10-PCS; 2018-03-17)
PROC: 0DBM8ZX Excision of Descending Colon, Via Natural or Artificial Opening Endoscopic, Diagnostic (ICD-10-PCS; 2018-03-17)
PROC: 0DBK8ZX Excision of Ascending Colon, Via Natural or Artificial Opening Endoscopic, Diagnostic (ICD-10-PCS; principal; 2018-03-17 09:10)
DX: K51.80 Other ulcerative colitis without complications (principal); N17.0 Acute kidney failure with tubular necrosis; E43 Unspecified severe protein-calorie malnutrition; I82.493 Acute embolism and thrombosis of other specified deep vein of lower extremity, bilateral; E44.0 Moderate protein-calorie malnutrition; E87.1 Hypo-osmolality and hyponatremia; R18.8 Other ascites; K92.2 Gastrointestinal hemorrhage, unspecified; R64 Cachexia; Z68.1 Body mass index [BMI] 19.9 or less, adult; E83.42 Hypomagnesemia; K21.9 Gastro-esophageal reflux disease without esophagitis; E83.39 Other disorders of phosphorus metabolism; E87.6 Hypokalemia; F41.9 Anxiety disorder, unspecified; R62.7 Adult failure to thrive; E88.09 Other disorders of plasma-protein metabolism, not elsewhere classified; D63.8 Anemia in other chronic diseases classified elsewhere; R53.1 Weakness; D47.3 Essential (hemorrhagic) thrombocythemia; Z91.19 Patient's noncompliance with other medical treatment and regimen; K80.20 Calculus of gallbladder without cholecystitis without obstruction
CPT/HCPCS: 36415; 70450-TC; 71045-TC; 80048-TC; 80053-TC; 80076-TC; 81000-TC; 82105; 82378; 82746; 83540-TC; 83605-TC; 83735-TC; 83880; 84100-TC; 84443-TC; 84484-TC; 85025-TC; 85652-TC; 85730-TC; 86140-TC; 87040-TC; 87081-TC; 87086-TC; 88305-TC; 93307-TC; 93970-TC; A4216; A4606; A6403; A9563; J0744; J1650; J2270; J2916; J3475; J3490; J7030; J7040; J7060; Z7610